=== PATIENT | male | born 1980 | race Caucasian/White ===

== ENCOUNTER 2016-05-21 13:36 | Emergency (ER) | payer SELFPAY ==
[~2016-05-21] VITALS: Wt 100.0 kg
[2016-05-21] MEDS ORDERED: IBUPROFEN 600 MG TAB PO ONE (15:00)
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
[2016-05-21] MEDS ORDERED: TRAM50TA2 PO (16:03)
[2016-05-21] MEDS ORDERED: IBUP-1542 PO (16:03)
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
== END 2016-05-21 16:37 | disposition home or self-care (01) ==
LOC: FTE 13:36
DX: S63.601A Unspecified sprain of right thumb, initial encounter (principal); S13.9XXA Sprain of joints and ligaments of unspecified parts of neck, initial encounter; S33.5XXA Sprain of ligaments of lumbar spine, initial encounter; V49.40XA Driver injured in collision with unspecified motor vehicles in traffic accident, initial encounter
CPT/HCPCS: 72040; 72100; 73140